=== PATIENT | female | born 1990 | race Caucasian/White ===

== ENCOUNTER 2019-04-01 17:25 | Observation (INO) | payer BC, OTHER ==
--- NOTE | 2019-04-01 18:48 | ED ---
General Adult HPI - General Chief complaint: Neck Pain/Injury Stated complaint: PAIN LEFT SIDE OF NECK, JAW AND FACE/ARM NUMB Time Seen by Provider: 04/01/19 17:37 Source: patient Mode of arrival: ambulatory Limitations: no limitations - History of Present Illness Initial comments: Patient is a 29-year-old male presents emergency Department with left-sided neck pain. Patient reports her symptoms started approximately 3 days ago which she noticed pain along the left side mandibular region. Patient also reports numbness in the left cheek, not the forehead. Patient reports tingling that starts on the left shoulder and travels distally. Patient reports numbness on all of her fingertips. Patient denies nausea, vomiting. Patient does report a left-sided headache around the orbit. Patient denies blurry vision, one-sided weakness or gait instability. Patient denies fever. Patient does report a history of Graves' disease. Patient does have a family history of multiple sclerosis. - Related Data Home Medications Medication Instructions Recorded Confirmed Methimazole 5 mg PO DAILY 04/01/19 04/01/19 Allergies Allergy/AdvReac Type Severity Reaction Status Date / Time acetaminophen Allergy Anaphylaxis Verified 04/01/19 21:12 [From Tylenol-Codeine #3] codeine Allergy Anaphylaxis Verified 04/01/19 21:12 codeine phosphate Allergy Anaphylaxis Verified 04/01/19 21:12 [From Tylenol-Codeine #3] Review of Systems ROS Statement: Those systems with pertinent positive or pertinent negative responses have been documented in the HPI. ROS Other: All systems not noted in ROS Statement are negative. Past Medical History Past Medical History: Asthma Additional Past Medical History / Comment(s): graves disease History of Any Multi-Drug Resistant Organisms: None Reported Past Surgical History: No Surgical Hx Reported Additional Past Surgical History / Comment(s): right wrist Past Anesthesia/Blood Transfusion Reactions: Motion Sickness Past Psychological History: Anxiety Smoking Status: Current every day smoker Past Alcohol Use History: None Reported, Occasional Past Drug Use History: None Reported General Exam Limitations: no limitations General appearance: alert, in no apparent distress Head exam: Present: atraumatic, normocephalic, normal inspection Eye exam: Present: normal appearance, PERRL, EOMI. Absent: conjunctival injection Pupils: Present: normal accommodation ENT exam: Present: normal exam, normal oropharynx (No enlarged tonsils or jose thema noted), mucous membranes moist, TM's normal bilaterally Neck exam: Present: normal inspection, tenderness (Tenderness inferior to the body of the left mandible.), full ROM. Absent: lymphadenopathy Respiratory exam: Present: normal lung sounds bilaterally Cardiovascular Exam: Present: regular rate, normal rhythm, normal heart sounds Extremities exam: Present: normal capillary refill, other (+2 radial and ulnar pulses, Bilaterally. equal strength on upper and lower extremities, bilaterally . Numbness noted on all fingers of the left hand.). Absent: tenderness Back exam: Present: normal inspection Neurological exam: Present: alert, oriented X3 Psychiatric exam: Present: normal affect, normal mood Skin exam: Present: warm, intact, normal color Course Vital Signs 04/01/19 04/01/19 17:32 22:33 Temperature 98.8 F Pulse Rate 84 68 Respiratory 18 16 Rate Blood Pressure 117/76 114/55 O2 Sat by Pulse 98 100 Oximetry Medical Decision Making - Medical Decision Making Patient is a 29-year-old male presents emergency Department for focal no deficits. Patient does have an NIH scale of 2. CT imaging of the brain is negative for acute fractures, dislocations, or midline shift or space-occupying lesions. Stroke workup is unremarkable. EKG is unremarkable. At this point patient will be admitted for observation for further testing due to possible CVA or initial onset of multiple sclerosis symptoms. The admitting physician is Dr. Ferraro. Dr. Tamayo also examine the patient and is in agreement with the treatment plan. - Lab Data Result diagrams: 04/01/19 18:50 04/01/19 18:50 Lab Results 04/01/19 04/01/19 04/01/19 Range/Units 18:50 18:50 18:50 WBC 7.4 (3.8-10.6) k/uL RBC 4.57 (3.80-5.40) m/uL Hgb 13.8 (11.4-16.0) gm/dL Hct 40.7 (34.0-46.0) % MCV 88.9 (80.0-100.0) fL MCH 30.2 (25.0-35.0) pg MCHC 33.9 (31.0-37.0) g/dL RDW 12.7 (11.5-15.5) % Plt Count 277 (150-450) k/uL PT 9.7 (9.0-12.0) sec INR 0.9 (<1.2) APTT 26.5 (22.0-30.0) sec Sodium 140 (137-145) mmol/L Potassium 4.1 (3.5-5.1) mmol/L Chloride 107 (98-107) mmol/L Carbon Dioxide 25 (22-30) mmol/L Anion Gap 8 mmol/L BUN 12 (7-17) mg/dL Creatinine 0.55 (0.52-1.04) mg/dL Est GFR (CKD-EPI)AfAm >90 (>60 ml/min/1.73 sqM) Est GFR (CKD-EPI)NonAf >90 (>60 ml/min/1.73 sqM) Glucose 92 (74-99) mg/dL POC Glucose (mg/dL) (75-99) mg/dL POC Glu Regulatory Submissions Specialist ID Calcium 9.9 (8.4-10.2) mg/dL Total Bilirubin 1.1 (0.2-1.3) mg/dL AST 20 (14-36) U/L ALT 15 (9-52) U/L Alkaline Phosphatase 62 (38-126) U/L Troponin I (0.000-0.034) ng/mL Total Protein 7.1 (6.3-8.2) g/dL Albumin 4.4 (3.5-5.0) g/dL 04/01/19 04/01/19 Range/Units 18:50 19:13 WBC (3.8-10.6) k/uL RBC (3.80-5.40) m/uL Hgb (11.4-16.0) gm/dL Hct (34.0-46.0) % MCV (80.0-100.0) fL MCH (25.0-35.0) pg MCHC (31.0-37.0) g/dL RDW (11.5-15.5) % Plt Count (150-450) k/uL PT (9.0-12.0) sec INR (<1.2) APTT (22.0-30.0) sec Sodium (137-145) mmol/L Potassium (3.5-5.1) mmol/L Chloride (98-107) mmol/L Carbon Dioxide (22-30) mmol/L Anion Gap mmol/L BUN (7-17) mg/dL Creatinine (0.52-1.04) mg/dL Est GFR (CKD-EPI)AfAm (>60 ml/min/1.73 sqM) Est GFR (CKD-EPI)NonAf (>60 ml/min/1.73 sqM) Glucose (74-99) mg/dL POC Glucose (mg/dL) 90 (75-99) mg/dL POC Glu Regulatory Submissions Specialist ID Nicolasa Partida A Calcium (8.4-10.2) mg/dL Total Bilirubin (0.2-1.3) mg/dL AST (14-36) U/L ALT (9-52) U/L Alkaline Phosphatase (38-126) U/L Troponin I <0.012 (0.000-0.034) ng/mL Total Protein (6.3-8.2) g/dL Albumin (3.5-5.0) g/dL Disposition Clinical Impression: Focal neurological deficit Disposition: ADMITTED IP TO THIS HOSP Condition: Stable Is patient prescribed a controlled substance at d/c from ED?: No Time of Disposition: 22:54
[2019-04-01 19:10] LABS: HCT 40.7 % (34.0-46.0); HGB 13.8 gm/dL (11.4-16.0); MCH 30.2 pg (25.0-35.0); MCHC 33.9 g/dL (31.0-37.0); MCV 88.9 fL (80.0-100.0); Mean Platelet Volume 7.2; Platelet Count 277 k/uL (150-450); RBC 4.57 m/uL (3.80-5.40); RDW 12.7 % (11.5-15.5); WBC 7.4 k/uL (3.8-10.6)
[2019-04-01 19:15] LABS: Glucose,Whole Blood 90 mg/dL (75-99)
[2019-04-01 19:18] LABS: INR 0.9 (<1.2); Partial Thromboplastin Time 26.5 sec (22.0-30.0); Prothrombin Time 9.7 sec (9.0-12.0)
[2019-04-01 19:22] LABS: ALT 15 U/L (9-52); AST 20 U/L (14-36); African American GFR (CKD) >90 (>60 ml/min/1.73 sqM); Albumin 4.4 g/dL (3.5-5.0); Alkaline Phosphatase 62 U/L (38-126); Anion Gap 8 mmol/L; Blood Urea Nitrogen 12 mg/dL (7-17); Calcium 9.9 mg/dL (8.4-10.2); Carbon Dioxide 25 mmol/L (22-30); Chloride 107 mmol/L (98-107); Glucose 92 mg/dL (74-99); Potassium 4.1 mmol/L (3.5-5.1); Sodium 140 mmol/L (137-145); Total Bilirubin 1.1 mg/dL (0.2-1.3); Total Protein 7.1 g/dL (6.3-8.2)
--- NOTE | 2019-04-01 19:51 | XR ---
EXAMINATION: XR chest 2V DATE AND TIME: 04/01/2019 7:44 PM CLINICAL INDICATION: PHH; altered mental status TECHNIQUE: Departmental protocol COMPARISON: 03/07/2014 FINDINGS: The lungs are clear. The pleural spaces are negative. The cardiac silhouette is not enlarged. The remainder of the mediastinal silhouette is unremarkable. The skeletal structures and soft tissues are negative for acute findings. IMPRESSION: NO ACUTE PROCESS.
--- NOTE | 2019-04-01 19:54 | CT ---
EXAMINATION: CT brain wo con for TPA DATE AND TIME: 04/01/2019 7:42 PM CLINICAL INDICATION: PHH; Neuro Deficits TECHNIQUE: Standard departmental protocol.; 1048.4; COMPARISON: CT 10/18/2013 FINDINGS: The calvarium is intact. There is no intracranial hemorrhage. There is no intracranial mass or mass effect. No definite new intra-axial or extra-axial attenuation defect. The paranasal sinuses, middle ear cavities, and mastoid sinus air cells are clear. The orbits are unremarkable. IMPRESSION: NO ACUTE PROCESS.
[2019-04-01] MEDS ORDERED: NALOXONE 0.4 MG/ML 1 ML VIAL IV PRN (20:20)
[2019-04-01] MEDS ORDERED: ASPIRIN 81 MG PO STA (20:57)
[2019-04-02] MEDS ORDERED: MONTELUKAST 10 MG TAB ONE (00:58)
[2019-04-02] MEDS ORDERED: METHIMAZOLE 5 MG TAB ONE (00:58)
[2019-04-02 06:08] VITALS: BMI 29.6
[2019-04-02] MEDS: MONTELUKAST 10 MG TAB PO SCH ×2 (06:08→10:01)
[2019-04-02] MEDS: METHIMAZOLE 5 MG TAB PO SCH ×2 (06:08→10:01)
[2019-04-02 07:43] LABS: African American GFR (CKD) >90 (>60 ml/min/1.73 sqM); Anion Gap 6 mmol/L; Blood Urea Nitrogen 14 mg/dL (7-17); Calcium 9.3 mg/dL (8.4-10.2); Carbon Dioxide 26 mmol/L (22-30); Chloride 108 mmol/L (98-107); Cholesterol 171 mg/dL (<200); Glucose 93 mg/dL (74-99); HDL Cholesterol 52 mg/dL (40-60); LDL Cholesterol,Calculated 96 mg/dL (0-99); Potassium 4.7 mmol/L (3.5-5.1); Sodium 140 mmol/L (137-145); Triglycerides 115 mg/dL (<150)
[2019-04-02 08:15] LABS: Basophils % (A) 0 %; Eosinophils # (A) 0.1 k/uL (0-0.7); Eosinophils % (A) 2 %; HCT 41.5 % (34.0-46.0); HGB 13.7 gm/dL (11.4-16.0); Lymphocytes # (A) 2.8 k/uL (1.0-4.8); Lymphocytes % (A) 51 %; MCH 29.7 pg (25.0-35.0); MCV 89.9 fL (80.0-100.0); Mean Platelet Volume 7.3; Monocytes # (A) 0.3 k/uL (0-1.0); Monocytes % (A) 6 %; Neutrophils # (A) 2.1 k/uL (1.3-7.7); Neutrophils % (A) 39 %; Platelet Count 249 k/uL (150-450); RBC 4.62 m/uL (3.80-5.40); RDW 13.9 % (11.5-15.5); WBC 5.5 k/uL (3.8-10.6)
--- NOTE | 2019-04-02 09:15 | P.CNNES ---
History of Present Illness Consult date: 04/02/19 Requesting physician: Jm Lang Reason for Consult: Left facial, neck and LUE numbness Chief complaint: Left facial, neck and LUE numbness x 3 days History of Present Illness: This is a 29 RH female who presents with a 3-day h/o left facial, neck and LUE numbness and tingling. Strength is preserved. No head/neck trauma. Denies other associated neuro symptoms such as decreased level or loss of consciousness, headache, seizure, diplopia, amaurosis, facial droop, vertigo, dysarthria, dysp hagia, aphasia, other focal numbness/weakness not mentioned above, tremors, bowel/bladder incontinence or ataxia. No Lhermitte's or Uthoff's. The finger tingling has improved since its onset. Patient became quite concerned about her focal neuro deficits and presented to the ER and was admitted for work-up. Review of Systems 14-point ROS performed and as per HPI. Past Medical History Past Medical History: Asthma Additional Past Medical History / Comment(s): graves disease History of Any Multi-Drug Resistant Organisms: None Reported Past Surgical History: No Surgical Hx Reported Additional Past Surgical History / Comment(s): right wrist Past Anesthesia/Blood Transfusion Reactions: Motion Sickness Past Psychological History: Anxiety Smoking Status: Current every day smoker Past Alcohol Use History: None Reported, Occasional Additional Past Alcohol Use History / Comment(s): PT STATES IS TRYING TO QUIT Past Drug Use History: None Reported - Past Family History Mother Family Medical History: Neurologic Disorder, Thyroid Disorder Additional Family Medical History / Comment(s): MS Father Family Medical History: Coronary Artery Disease (CAD), Hyperlipidemia, Hypertension Additional Family Medical History / Comment(s): OPLL Medications and Allergies Home Medications Medication Instructions Recorded Confirmed Type Methimazole 5 mg PO DAILY 04/01/19 04/01/19 History Allergies Allergy/AdvReac Type Severity Reaction Status Date / Time acetaminophen Allergy Anaphylaxis Verified 04/01/19 21:12 [From Tylenol-Codeine #3] codeine Allergy Anaphylaxis Verified 04/01/19 21:12 codeine phosphate Allergy Anaphylaxis Verified 04/01/19 21:12 [From Tylenol-Codeine #3] Physical Examination - Vital Signs Vital Signs: Vital Signs Temp Pulse Pulse Resp BP BP Pulse Ox 04/02/19 05:58 72 15 04/02/19 05:32 97.1 F L 78 15 118/72 98 04/02/19 00:00 78 15 04/01/19 22:33 68 16 114/55 100 04/01/19 17:32 98.8 F 84 18 117/76 98 Intake and Output 04/01/19 04/02/19 04/02/19 22:59 06:59 14:59 Intake Total 20 Balance 20 Intake: IV 20 Invasive Line 1 20 Other: Voiding Method Toilet Weight 72.938 kg Gen NAD Pleasant and cooperative HEENT NCAT Sclera without icterus O/P clear Neck Supple No carotid bruit Cor RRR no m/r/g Lungs CTAB Abd Soft NTND +BS Ext Warm to touch No edema Neuro MS A+Ox4 Normal fluency Able to follow all commands CN PERRL VFF no APD EOMI no nystagmus or GARFIELD No facial asymmetry Masseter's symmetric Hearing intact to normal voice bilaterally Speech not dysarthric Equal elevation of palate Tongue midline Sym shrug and SCM bilaterally Motor Normal bulk/tone No pronator drift or tremors Strength 5/5 sym throughout Sens Intact to LT x4 No neglect or extinction No Lhermitte's +Spurling's Coord No dysmetria on FTN bilaterally DTRs 1+/4 sym throughout Toes downgoing bilaterally No clonus at achilles Gait Deferred Results - Laboratory Findings CBC and BMP: 04/02/19 06:38 04/02/19 06:38 Abnormal Lab Findings: Abnormal Labs 04/02/19 06:38 Chloride 108 H - Diagnostic Findings Additional findings: CT Head wo cont 04/01/19. Nil acute. I have reviewed all neuroimages myself. Assessment and Plan Assessment: Left lower facial, neck and LUE numbness and paresthesias. Sounds like cervical radiculopathy vs muscle spasm. Lower index of suspicion for a supratentorial structural explanation. Plan: -MRI Brain and C-spine wo constantine ordered. -If the above studies do not get done by the end of the day and patient wishes to be discharged, these studies may be done as outpatient after which she should follow up with outpatient neurology. -Differential considerations and potential further work-up explained to patient in detail. All questions answered. -No further neuro recs at this time. Please call with new ?. Thank you for this consultation. Time with Patient: Greater than 30 (Time spent in direct patient care, greater than 50% of which was spent in [id number] counseling and coordination of care: 70 minutes.)
[2019-04-02 10:23] VITALS: RESP 18; TEMP 98.1
--- NOTE | 2019-04-02 14:20 | P.HPIM ---
History of Present Illness H&P Date: 04/02/19 Chief Complaint: Paresthesia on left side of body. History and physical and discharge summary. 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 with a previous medical history significant for Graves' disease currently on Tapazole 5 minute gram orally once every day, presented to the emergency department at [facility] yesterday with 3 day history of increased numbness including her face neck left upper extremity without any associated diplopia difficulty swallowing, no significant weakness in both upper or lower extremities, she mentioned that she usually is clumsy she falls a lot, she did not have any recent trauma to the neck or lower back, she had no bowel or urine incontinence, patient was seen in the emergency department and she was seen in consultation by neurology it was recommended for the patient to have an MRI of the brain with and without CAD for further evaluation specially her mother had a history of multiple sclerosis. Review of Systems Constitutional: Denies chills, Denies chronic headaches, Denies lethargy, Denies weakness, Denies weight gain Eyes: denies blurred vision, denies bulging eye, denies decreased vision, denies diplopia Ears: deny: decreased hearing Ears, nose, mouth and throat: Denies dysphagia, Denies neck fullness/pressure, Denies swelling in throat Cardiovascular: Denies chest pain, Denies decreased exercise tolerance, Denies dyspnea on exertion, Denies leg edema, Denies rapid heart beat, Denies shortness of breath, Denies syncope Respiratory: Denies congestion, Denies cough, Denies cough with sputum, Denies home oxygen, Denies sleep apnea, Denies snoring Gastrointestinal: Denies abdominal pain, Denies BRBPR, Denies excessive gas, Denies heartburn, Denies melena, Denies nausea, Denies vomiting Genitourinary: Denies dysuria, Denies nocturia Musculoskeletal: Denies myalgias Musculoskeletal: absent: ankle pain, ankle stiffness, ankle swelling, elbow pain, elbow stiffness, elbow swelling, foot pain, foot stiffness, foot swelling, hand pain, hand stiffness, hand swelling, hip pain, hip stiffness, hip swelling, knee pain, knee stiffness, knee swelling, shoulder pain, shoulder stiffness, shoulder swelling, wrist pain, wrist stiffness, wrist swelling Integumentary: Denies pruritus, Denies rash Neurological: Reports numbness, Reports paresthesias, Denies balance difficulties, Denies burning pain, Denies change in mentation, Denies change in smell/taste, Denies change in speech, Denies confusion, Denies double vision, Denies gait dysfunction, Denies headaches, Denies lack of coordination, Denies loss of vision, Denies memory loss, Denies migraines, Denies seizures, Denies spasticity, Denies syncope, Denies tingling, Denies transient paralysis, Denies tremors, Denies weakness, Denies visual changes Psychiatric: Denies anxiety, Denies depression Endocrine: Denies fatigue, Denies weight change Past Medical History Past Medical History: Asthma Additional Past Medical History / Comment(s): graves disease History of Any Multi-Drug Resistant Organisms: None Reported Past Surgical History: No Surgical Hx Reported Additional Past Surgical History / Comment(s): right wrist Past Anesthesia/Blood Transfusion Reactions: Motion Sickness Past Psychological History: Anxiety Smoking Status: Current every day smoker (Patient smokes about a pack every day since she was 15-year-old .) Past Alcohol Use History: None Reported, Occasional Additional Past Alcohol Use History / Comment(s): PT STATES IS TRYING TO QUIT Past Drug Use History: None Reported - Past Family History Mother Family Medical History: Neurologic Disorder (Mother 61-year-old with history of multiple sclerosis.), Thyroid Disorder Additional Family Medical History / Comment(s): MS Father Family Medical History: Coronary Artery Disease (CAD) (Father is 57-year-old with history of CAD hyperlipidemia hypertension also history of OPLL(op acification of posterior longitudinal ligament)), Hyperlipidemia, Hypertension Additional Family Medical History / Comment(s): OPLL Brother(s) Family Medical History: No Reported History (Patient had 2 brothers one as a stillborn) Sister(s) Family Medical History: No Reported History (Patient has one sister.) Daughter(s) Family Medical History: No Reported History (Patient has one daughter no major medical problems.) Son(s) Family Medical History: No Reported History (Patient has one son no major medical problems.) Medications and Allergies Home Medications Medication Instructions Recorded Confirmed Type Methimazole 5 mg PO DAILY 04/01/19 04/01/19 History Allergies Allergy/AdvReac Type Severity Reaction Status Date / Time acetaminophen Allergy Anaphylaxis Verified 04/01/19 21:12 [From Tylenol-Codeine #3] codeine Allergy Anaphylaxis Verified 04/01/19 21:12 codeine phosphate Allergy Anaphylaxis Verified 04/01/19 21:12 [From Tylenol-Codeine #3] Physical Exam Vitals: Vital Signs Temp Pulse Pulse Resp BP BP Pulse Ox 04/02/19 08:30 98.1 F 68 18 106/54 98 04/02/19 05:58 72 15 04/02/19 05:32 97.1 F L 78 15 118/72 98 04/02/19 00:00 78 15 04/01/19 22:33 68 16 114/55 100 04/01/19 17:32 98.8 F 84 18 117/76 98 Intake and Output 04/01/19 04/02/19 04/02/19 22:59 06:59 14:59 Intake Total 20 Balance 20 Intake: IV 20 Invasive Line 1 20 Other: Voiding Method Toilet Weight 72.938 kg - Constitutional General appearance: average body habitus, no acute distress - EENT Eyes: abnormal pupil, EOMI, PERRLA, no ptosis, no scleral icterus, normal appearance ENT: hearing grossly normal, NA/AT, normal oropharynx, no thrush Ears: bilateral: normal - Neck Neck: no lymphadenopathy, normal ROM, no rigidity, no stridor, no thyromegaly Carotids: bilateral: upstroke normal Thyroid: bilateral: normal size - Respiratory Respiratory: bilateral: diminished, negative: dullness, rales, rhonchi, wheezing, prolonged expiration, prolonged inspiration - Cardiovascular Rhythm: regular Heart sounds: normal: S1, S2 Abnormal Heart Sounds: no systolic murmur, no rub, no S3 Gallop, no S4 Gallop, no click - Gastrointestinal General gastrointestinal: normal bowel sounds, soft, no splenomegaly, no tenderness, no umbilical hernia, no ventral hernia - Integumentary Integumentary: normal, normal turgor - Neurologic Neurologic: CNII-XII intact - Musculoskeletal Musculoskeletal: gait normal, strength equal bilaterally - Psychiatric Psychiatric: A&O x's 3, appropriate affect, intact judgment & insight Results CBC & Chem 7: 04/02/19 06:38 04/02/19 06:38 Labs: Abnormal Lab Results - Last 24 Hours (Table) 04/02/19 Range/Units 06:38 Chloride 108 H (98-107) mmol/L Thrombosis Risk Factor Assmnt - DVT/VTE Prophylaxis DVT/VTE Prophylaxis: Mechanical Prophylaxis ordered, Low risk, early ambulation encouraged - Choose All That Apply Any of the Below Risk Factors Present?: No Other Risk Factors: No Other congenital or acquired thrombophilia - If yes, enter type in comment: Yes Each Risk Factor Represents 5 Points: Stroke (< 1 month) Thrombosis Risk Factor Assessment Total Risk Factor Score: 5 Thrombosis Risk Factor Assessment Level: High Risk Assessment and Plan Assessment: Assessment and plan: 1. Paresthesia on the left side of the body thank you etiology. Patient does not appear to have an acute CVA at this time, no signs of lateralization, she will definitely need to follow-up with neurology as an outpatient for MRI with and without CAD as well as possible lumbar puncture for further evaluation especially in view of her family history of multiple strokes. 2. Graves' disease. Continue Tapazole 5 mg orally once every day. 3. Tobacco use and dependence. Smoking cessation and counseling an increased risk of CAD, CVA and malignancy. 4. Patient is full code. 5. Patient can be discharged home a follow-up with neurology as an outpatient.
[2019-04-02 14:41] VITALS: BP 109/58; PULSE 70
== END 2019-04-02 15:20 | disposition home or self-care (01) ==
LOC: EC 17:25 → 3SCARD 20:58 → UNDODISOB 21:15 → 3SCARD 23:09
PROVIDERS: ADMIT Internal Medicine; ATTEND Internal Medicine
DX: R20.2 Paresthesia of skin (principal); R20.0 Anesthesia of skin; M54.2 Cervicalgia; R51 Headache; E05.00 Thyrotoxicosis with diffuse goiter without thyrotoxic crisis or storm; J45.909 Unspecified asthma, uncomplicated; F17.210 Nicotine dependence, cigarettes, uncomplicated; F41.9 Anxiety disorder, unspecified; R29.702 NIHSS score 2; Z79.899 Other long term (current) drug therapy; Z88.5 Allergy status to narcotic agent; Z88.6 Allergy status to analgesic agent; Z82.0 Family history of epilepsy and other diseases of the nervous system; Z83.49 Family history of other endocrine, nutritional and metabolic diseases; Z82.49 Family history of ischemic heart disease and other diseases of the circulatory system; Z82.3 Family history of stroke
CPT/HCPCS: 99285; 36415; 93005; 80061; 80053; 80048; 84484; 85025; 85027; 85610; 85730; 71046; 70450; G0378 ×2

== ENCOUNTER 2019-09-15 18:31 | Emergency (ER) | payer BC, OTHER ==
[2019-09-15 18:45] VITALS: BP 113/72; PULSE 78; RESP 19; TEMP 98.9
--- NOTE | 2019-09-15 20:05 | ED ---
Recheck HPI - General Source: patient Mode of arrival: ambulatory Limitations: no limitations <Kasandra Yagn - Last Filed: 09/15/19 20:02> <Jacquie Alexander - Last Filed: 09/16/19 00:15> - General Chief Complaint: Recheck/Abnormal Lab/Rx Stated Complaint: High B/P Time Seen by Provider: 09/15/19 18:55 - History of Present Illness Initial Comments: Patient is a 29-year-old female presenting to the emergency Department with multiple complaints. Patient states she took her blood pressure at home today and was 140/100. Patient is also complaining of feeling like the room is spinning as well as intermittent palpitations and twitching of her right eye. She denies any heart conditions or heart disease. Patient states she was on a short course of metoprolol for a high heart rate prior to being treated for Graves' disease. Patient states she has been worked up for MS and is currently seeing a neurologist but has not been getting any answers. Patient is supposed be on a thyroid medication for Graves' disease however she stopped taking it approximately one to 2 months ago. Patient also had a recent eye exam, and is needing a new eye prescription which she has not received yet. She denies any fever, chills, recent illness, nausea, vomiting, diarrhea. Patient has no other complaints at this time. Upon arrival to the ER, vital signs are stable. (Kasandra Yang) - Related Data Home Medications Medication Instructions Recorded Confirmed Methimazole 5 mg PO DAILY 04/01/19 04/01/19 Previous Rx's Medication Instructions Recorded Montelukast [Singulair] 10 mg PO DAILY #30 tab 04/02/19 Allergies Allergy/AdvReac Type Severity Reaction Status Date / Time acetaminophen Allergy Anaphylaxis Verified 04/01/19 21:12 [From Tylenol-Codeine #3] codeine Allergy Anaphylaxis Verified 04/01/19 21:12 codeine phosphate Allergy Anaphylaxis Verified 04/01/19 21:12 [From Tylenol-Codeine #3] Review of Systems ROS Other: All systems not noted in ROS Statement are negative. <Kasandra Yang - Last Filed: 09/15/19 20:02> ROS Other: All systems not noted in ROS Statement are negative. <Jacquie Alexander - Last Filed: 09/16/19 00:15> ROS Statement: Those systems with pertinent positive or pertinent negative responses have been documented in the HPI. Past Medical History Past Medical History: Asthma Additional Past Medical History / Comment(s): graves disease History of Any Multi-Drug Resistant Organisms: None Reported Past Surgical History: No Surgical Hx Reported Additional Past Surgical History / Comment(s): right wrist Past Anesthesia/Blood Transfusion Reactions: Motion Sickness Past Psychological History: Anxiety Smoking Status: Current every day smoker Past Alcohol Use History: None Reported, Occasional Past Drug Use History: None Reported - Past Family History Mother Family Medical History: Neurologic Disorder (Mother 61-year-old with history of multiple sclerosis.), Thyroid Disorder Additional Family Medical History / Comment(s): MS Father Family Medical History: Coronary Artery Disease (CAD) (Father is 57-year-old with history of CAD hyperlipidemia hypertension also history of OPLL(opacification of posterior longitudinal ligament)), Hyperlipidemia, Hypertension Additional Family Medical History / Comment(s): OPLL Brother(s) Family Medical History: No Reported History (Patient had 2 brothers one as a stillborn) Sister(s) Family Medical History: No Reported History (Patient has one sister.) Daughter(s) Family Medical History: No Reported History (Patient has one daughter no major medical problems.) Son(s) Family Medical History: No Reported History (Patient has one son no major medical problems.) <Kasandra Yang L - Last Filed: 09/15/19 20:02> General Exam Limitations: no limitations <Kasandra Yang - Last Filed: 09/15/19 20:02> - General Exam Comments Initial Comments: GENERAL: Well-appearing, well-nourished and in no acute distress. HEAD: Atraumatic, normocephalic. EYES: Pupils equal round and reactive to light, extraocular movements intact, sclera anicteric, conjunctiva are normal. ENT: TMs normal, nares patent, oropharynx clear without exudates. Moist mucous membranes. NECK: Normal range of motion, supple without lymphadenopathy or JVD. LUNGS: Breath sounds clear to auscultation bilaterally and equal. No wheezes rales or rhonchi. HEART: Regular rate and rhythm without murmurs, rubs or gallops. ABDOMEN: Soft, nontender, normoactive bowel sounds. No guarding, no rebound. No masses appreciated. : Deferred EXTREMITIES: Normal range of motion, no pitting or edema. No clubbing or cyanosis. NEUROLOGICAL: Cranial nerves II through XII grossly intact. Normal speech, normal gait. PSYCH: Normal mood, normal affect. SKIN: Warm, Dry, normal turgor, no rashes or lesions noted. (Kasandra Yang) Course Vital Signs 09/15/19 18:41 Temperature 98.9 F Pulse Rate 78 Respiratory 19 Rate Blood Pressure 113/72 O2 Sat by Pulse 96 Oximetry Medical Decision Making <Kasandra Yang - Last Filed: 09/15/19 20:02> - Lab Data Result diagrams: 09/15/19 20:10 09/15/19 20:10 <Jacquie Alexander - Last Filed: 09/16/19 00:15> - Medical Decision Making Patient is a 29-year-old female presenting with complaints of elevated blood pressure among other complaints. (Kasandra Yang) This is a 29-year-old female, who presents emergency department today with elevated blood pressure, the multitude of complaints.Nurse states main complaint was dizziness. Patient was initially seen by Kasandra BERNSTEIN. Blood work was obtained in this Patient was given to me the sign out. Patient then stated that she to the nursing staff she did not want to wait for testing and felt that she was not being treated for her symptoms. She states that she does not want to wait for her blood work testing and will sign AGAINST MEDICAL ADVICE form. Patient left before I was able to visualize her or talk to her. (Jacquie Alexander) - Lab Data Lab Results 09/15/19 09/15/19 Range/Units 20:10 20:10 WBC 7.2 (3.8-10.6) k/uL RBC 4.43 (3.80-5.40) m/uL Hgb 13.8 (11.4-16.0) gm/dL Hct 40.2 (34.0-46.0) % MCV 90.7 (80.0-100.0) fL MCH 31.2 (25.0-35.0) pg MCHC 34.4 (31.0-37.0) g/dL RDW 11.9 (11.5-15.5) % Plt Count 336 (150-450) k/uL Neutrophils % 47 % Lymphocytes % 43 % Monocytes % 5 % Eosinophils % 3 % Basophils % 0 % Neutrophils # 3.4 (1.3-7.7) k/uL Lymphocytes # 3.1 (1.0-4.8) k/uL Monocytes # 0.4 (0-1.0) k/uL Eosinophils # 0.2 (0-0.7) k/uL Basophils # 0.0 (0-0.2) k/uL Sodium 141 (137-145) mmol/L Potassium 4.1 (3.5-5.1) mmol/L Chloride 107 (98-107) mmol/L Carbon Dioxide 28 (22-30) mmol/L Anion Gap 6 mmol/L BUN 11 (7-17) mg/dL Creatinine 0.75 (0.52-1.04) mg/dL Est GFR (CKD-EPI)AfAm >90 (>60 ml/min/1.73 sqM) Est GFR (CKD-EPI)NonAf >90 (>60 ml/min/1.73 sqM) Glucose 99 (74-99) mg/dL Calcium 9.6 (8.4-10.2) mg/dL TSH 0.667 (0.465-4.680) mIU/L Disposition <Kasandra Yang - Last Filed: 09/15/19 20:02> Is patient prescribed a controlled substance at d/c from ED?: No Time of Disposition: 00:14 <Jacquie Alexander - Last Filed: 09/16/19 00:15> Clinical Impression: Dizziness Disposition: Left Against Medical Advice Condition: Stable Referrals: Paul Diaz MD [Primary Care Provider] - 1-2 days
[2019-09-15 20:16] LABS: Basophils % (A) 0 %; Eosinophils # (A) 0.2 k/uL (0-0.7); Eosinophils % (A) 3 %; HCT 40.2 % (34.0-46.0); HGB 13.8 gm/dL (11.4-16.0); Lymphocytes # (A) 3.1 k/uL (1.0-4.8); Lymphocytes % (A) 43 %; MCH 31.2 pg (25.0-35.0); MCHC 34.4 g/dL (31.0-37.0); MCV 90.7 fL (80.0-100.0); Monocytes # (A) 0.4 k/uL (0-1.0); Monocytes % (A) 5 %; Neutrophils # (A) 3.4 k/uL (1.3-7.7); Neutrophils % (A) 47 %; Platelet Count 336 k/uL (150-450); RBC 4.43 m/uL (3.80-5.40); RDW 11.9 % (11.5-15.5); WBC 7.2 k/uL (3.8-10.6)
[2019-09-15 20:30] LABS: African American GFR (CKD) >90 (>60 ml/min/1.73 sqM); Anion Gap 6 mmol/L; Blood Urea Nitrogen 11 mg/dL (7-17); Calcium 9.6 mg/dL (8.4-10.2); Carbon Dioxide 28 mmol/L (22-30); Chloride 107 mmol/L (98-107); Glucose 99 mg/dL (74-99); Non-African American GFR(CKD) >90 (>60 ml/min/1.73 sqM); Potassium 4.1 mmol/L (3.5-5.1); Sodium 141 mmol/L (137-145)
== END 2019-09-15 20:45 | disposition left against medical advice (07) ==
LOC: EC 18:31
DX: R42 Dizziness and giddiness (principal); R03.0 Elevated blood-pressure reading, without diagnosis of hypertension; E05.00 Thyrotoxicosis with diffuse goiter without thyrotoxic crisis or storm; F17.200 Nicotine dependence, unspecified, uncomplicated; Z88.5 Allergy status to narcotic agent; Z88.8 Allergy status to other drugs, medicaments and biological substances; Z79.890 Hormone replacement therapy
CPT/HCPCS: 36415; 80048; 84443; 85025; 99283

== ENCOUNTER 2020-08-15 15:18 | Emergency (ER) | payer BC, OTHER ==
[2020-08-15 15:51] VITALS: RESP 18
--- NOTE | 2020-08-15 17:11 | XR ---
EXAMINATION TYPE: XR chest 1V DATE OF EXAM: 08/15/2020 COMPARISON: 04/01/2019 HISTORY: Cough and congestion TECHNIQUE: FINDINGS: Heart and mediastinum are normal. Lungs are clear. Diaphragm is normal. Bony thorax appears normal. IMPRESSION: Normal chest. No change.
--- NOTE | 2020-08-15 17:45 | ED ---
General Adult HPI - General Chief complaint: Upper Respiratory Infection Stated complaint: Wants COVID Test Time Seen by Provider: 08/15/20 15:28 Source: patient, RN notes reviewed, old records reviewed Mode of arrival: ambulatory Limitations: no limitations - History of Present Illness Initial comments: 30-year-old female patient to ED for evaluation cough congestion for the last 4 days. Has a history of asthma. Patient was exposed to covid and is requesting a test. The difficulty breathing or any chest pain. Denies any chance of . Denies any other complaints. Systemic: Pt denies fatigue, fever/chills, rash. Pt denies weakness, night sweats, weight loss. Neuro: Pt denies headache, visual disturbances, syncope or pre-syncope. HEENT: Pt denies ocular discharge or irritation, otalgia, rhinorrhea, pharyngitis or notable lymphadenopathy. Cardiopulmonary: Pt denies chest pain, SOB, heart palpitations, dyspnea on exertion. Abdominal/GI: Pt denies abdominal pain, n/v/d. : Pt denies dysuria, burning w/ urination, frequency/urgency. Denies new onset urinary or bowel incontinence. MSK: Pt denies myalgia, loss of strength or function in extremities. Neuro: Pt denies new onset weakness, paresthesias. - Related Data Home Medications Medication Instructions Recorded Confirmed methIMAzole [Methimazole] 5 mg PO DAILY 04/01/19 04/01/19 Previous Rx's Medication Instructions Recorded Montelukast [Singulair] 10 mg PO DAILY #30 tab 04/02/19 Albuterol Inhaler [Ventolin Hfa 1 puff INHALATION RT-QID PRN #1 08/15/20 Inhaler] inhaler methylPREDNISolone Dose Pack 4 mg PO DIRECTED #21 package 08/15/20 [Medrol Dose Pack] Allergies Allergy/AdvReac Type Severity Reaction Status Date / Time acetaminophen Allergy Anaphylaxis Verified 08/15/20 15:52 [From Tylenol-Codeine #3] codeine Allergy Anaphylaxis Verified 08/15/20 15:52 codeine phosphate Allergy Anaphylaxis Verified 08/15/20 15:52 [From Tylenol-Codeine #3] Review of Systems ROS Statement: Those systems with pertinent positive or pertinent negative responses have been documented in the HPI. ROS Other: All systems not noted in ROS Statement are negative. Past Medical History Past Medical History: Asthma Additional Past Medical History / Comment(s): graves disease History of Any Multi-Drug Resistant Organisms: None Reported Past Surgical History: No Surgical Hx Reported Additional Past Surgical History / Comment(s): right wrist Past Anesthesia/Blood Transfusion Reactions: Motion Sickness Past Psychological History: Anxiety Smoking Status: Current every day smoker Past Alcohol Use History: None Reported, Occasional Past Drug Use History: None Reported - Past Family History Mother Family Medical History: Neurologic Disorder (Mother 61-year-old with history of multiple sclerosis.), Thyroid Disorder Additional Family Medical History / Comment(s): MS Father Family Medical History: Coronary Artery Disease (CAD) (Father is 57-year-old with history of CAD hyperlipidemia hypertension also history of OPLL(opacification of posterior longitudinal ligament)), Hyperlipidemia, Hypertension Additional Family Medical History / Comment(s): OPLL Brother(s) Family Medical History: No Reported History (Patient had 2 brothers one as a stillborn) Sister(s) Family Medical History: No Reported History (Patient has one sister.) Daughter(s) Family Medical History: No Reported History (Patient has one daughter no major medical problems.) Son(s) Family Medical History: No Reported History (Patient has one son no major medical problems.) General Exam - General Exam Comments Initial Comments: Constitutional: NAD, AOX3, Pt has pleasant affect. HEENT: NC/AT, trachea midline, neck supple, no lymphadenopathy. External ears appear normal, without discharge. Mucous membranes moist. Eyes PERRLA, EOM intact. There is no scleral icterus. No pallor noted. Cardiopulmonary: RRR, no murmurs, rubs or gallops, no JVD noted. Lungs CTAB in anterior and posterior marti. No peripheral edema. Abdominal exam: Abdomen soft and non-distended. Abdomen non-tender to palpation in all 4 quadrants. Bowel sounds active in LLQ. No hepatosplenomegaly. No ecchymosis Neuro: CN II-XII grossly intact. No nuchal rigidity. No raccon eyes, no winkler sign, no hemotympanum. No cervical spinal tenderness. MSK: No posterior calf tenderness bilaterally, homans sign negative bilaterally. Posterior tibialis and radial pulse +2 bilaterally. Sensation intact in upper and lower extremities. Full active ROM in upper and lower extremities, 5/5 stregnth. Limitations: no limitations Course Vital Signs 08/15/20 08/15/20 15:47 17:30 Temperature 99.0 F 98.5 F Pulse Rate 73 77 Respiratory 18 18 Rate Blood Pressure 132/83 164/78 O2 Sat by Pulse 99 99 Oximetry Medical Decision Making - Medical Decision Making 30 year old female to ED for cough, congestion covid exposure. Physical exam negative for acut pathology. CXR negative, coronavirus negative. Patient will be discharged with albuterol inhaler refill, medrol dosepack, outpatient follow up and return precautions. Case discussed with Dr. Allan. - Lab Data Lab Results 08/15/20 Range/Units 16:14 Coronavirus (PCR) Not Detected (Not Detectd) Disposition Clinical Impression: Cough Disposition: HOME SELF-CARE Additional Instructions: 30 year old female to ED for cough, congestion covid exposure. Physical exam negative for acut pathology. CXR negative, coronavirus negative. Patient will be discharged with albuterol inhaler refill, medrol dosepack, outpatient follow up and return precautions. Case discussed with Dr. Allan. Prescriptions: methylPREDNISolone Dose Pack [Medrol Dose Pack] 4 mg PO DIRECTED #21 package Albuterol Inhaler [Ventolin Hfa Inhaler] 1 puff INHALATION RT-QID PRN #1 inhaler PRN Reason: wheezing Is patient prescribed a controlled substance at d/c from ED?: No Referrals: Paul Diaz MD [Primary Care Provider] - 1-2 days
[2020-08-15 17:48] VITALS: BP 164/78; PULSE 77; TEMP 98.5
== END 2020-08-15 17:51 | disposition home or self-care (01) ==
LOC: EC 15:18
DX: R05 Cough (principal); E05.00 Thyrotoxicosis with diffuse goiter without thyrotoxic crisis or storm; F17.200 Nicotine dependence, unspecified, uncomplicated; Z79.899 Other long term (current) drug therapy; Z88.5 Allergy status to narcotic agent; Z88.6 Allergy status to analgesic agent; Z20.828 Contact with and (suspected) exposure to other viral communicable diseases
CPT/HCPCS: 71045; 87635; 99284